=== PATIENT | female | born 1940 | race Caucasian/White ===

== ENCOUNTER 2016-10-16 15:28 | Emergency (ER) | payer MEDICARE, BC ==
[~2016-10-16 15:28] MED LIST: ASPI-130 PO; ATEN1TAB73 PO; CALCTAB80 OR; LEVO100T4 PO; LORT5TAB PO; MEVA40TA6 PO; TAB-TAB PO
[2016-10-16 15:34] VITALS: BP 123/75; PULSE 82; TEMP 97.9; O2SAT 95
[2016-10-16] MEDS ORDERED: SODIUM CHLORIDE 0.9% FLUSH 10 ML FLUSH IVF PRN (17:00)
[2016-10-16 17:03] VITALS: BP 158/99; PULSE 72; RESP 18; O2SAT 99
--- NOTE | 2016-10-16 17:13 | PD ---
HPI Chief Complaint: Syncope/Near-Syncope Time Seen by Provider: 17:05 Travel History International Travel<30 days: No Contact w/Intl Traveler<30days: No Traveled to known affect area: No History of Present Illness HPI This is a 76-year-old female with history of hypertension, hyperlipidemia, who presents today after having a syncopal episode. Patient states that she was feeling nauseous and went to the bathroom to vomit. She states that when she started to dry heave, she became dizzy and passed out. She says next thing she remembers she is on the floor. She reports that she struck the wall when she passed out. She denies any head pain or neck pain although she does have 2 abrasions to her forehead. The patient states that she had an episode similar to this in the past and was told that it was because she had a hypotensive episode. The patient denies any chest pain, chest pressure. She denies any nausea at this time. The patient denies any abdominal pain. She states that she has not eaten in 24 hours though. She does report that she's had acute stressors in her was recently in the hospital. [facility] Social History Tobacco Use: No Allergies-Medications (Allergen,Severity, Reaction): Coded Allergies: No Known Allergies (Unverified , 10/16/16) Reported Meds & Prescriptions Reported Meds & Active Scripts Active Reported Lisinopril 5 Mg Tab 5 Mg PO DAILY Lovastatin 40 Mg Tab 40 Mg PO DAILY Synthroid (Levothyroxine Sodium) 50 Mcg Tab 50 Mcg PO DAILY Calcium 1000 + D (Calcium Carbonate-Cholecalciferol) 1,000-800 Mg-Unit Tab 1 Tab PO Review of Systems Except as stated in HPI: all other systems reviewed are Neg General / Constitutional: No: Fever, Chills HENT: No: Headaches, Vertigo, Lightheadedness Cardiovascular: No: Chest Pain or Discomfort, Palpitations Respiratory: No: Cough, Shortness of Breath Gastrointestinal: Positive: Nausea, Vomiting, No: Abdominal Pain Musculoskeletal: Positive: Weakness (generalized weakness), No: Pain Neurologic: Positive: Weakness (generalized weakness), Syncope, No: Dizziness , Headache, Change in Mentation Physical Exam Narrative GENERAL: Well-developed well-nourished female in no acute respiratory distress. SKIN: Focused skin assessment warm/dry. HEAD: Normocephalic. The patient has 2 abrasions one to the right forehead and then one to the right lateral temporal area. There is no bony deformity or step -offs noted. EYES: Extraocular muscles were intact. No scleral icterus. No injection or drainage. ENT: No nasal bleeding or discharge. Mucous membranes pink and moist. NECK: Trachea midline. Supple. No posterior spinous process tenderness. Full range of motion CARDIOVASCULAR: Regular rate in the 80s with normal sinus rhythm. There is a 2/ 6 systolic murmur heard at the left sternal border. The patient reports that she has a history of murmurs. RESPIRATORY: No accessory muscle use. Clear to auscultation. Breath sounds equal bilaterally. GASTROINTESTINAL: Abdomen soft, non-tender, nondistended. No pulsatile masses. MUSCULOSKELETAL: No obvious deformities. No clubbing. No cyanosis. No edema. NEUROLOGICAL: Awake and alert. No obvious cranial nerve deficits. Motor grossly within normal limits. Normal speech. PSYCHIATRIC: Appropriate mood and affect; insight and judgment normal. Data Data Last Documented VS Vital Signs Date Time Temp Pulse Resp B/P Pulse Ox O2 Delivery O2 Flow Rate FiO2 10/16/16 17:27 73 17 137/65 74 16 145/64 84 20 165/65 10/16/16 17:03 98 Room Air 10/16/16 15:34 97.9 Orders Electrocardiogram (10/16/16 16:52) Complete Blood Count With Diff (10/16/16 16:52) Comprehensive Metabolic Panel (10/16/16 16:52) Magnesium (Mg) (10/16/16 16:52) Ckmb (Isoenzyme) Profile (10/16/16 16:52) Troponin I (10/16/16 16:52) Act Partial Throm Time (Ptt) (10/16/16 16:52) Prothrombin Time / Inr (Pt) (10/16/16 16:52) Urinalysis - C+S If Indicated (10/16/16 16:52) Chest, Single Ap (10/16/16 16:52) Ct Brain W/O Iv Contrast(Rout) (10/16/16 16:52) Ecg Monitoring (10/16/16 16:52) Iv Access Insert/Monitor (10/16/16 16:52) Oximetry (10/16/16 16:52) Sodium Chloride 0.9% Flush (Ns Flush) (10/16/16 17:00) Orthostatic Vital Signs (10/16/16 17:05) Sodium Chlorid 0.9% 500 Ml Inj (Ns 500 M (10/16/16 17:15) Labs Laboratory Tests Test 10/16/16 10/16/16 17:10 18:30 White Blood Count 4.8 TH/MM3 Red Blood Count 4.56 MIL/MM3 Hemoglobin 13.2 GM/DL Hematocrit 37.9 % Mean Corpuscular Volume 83.2 FL Mean Corpuscular Hemoglobin 29.1 PG Mean Corpuscular Hemoglobin 34.9 % Concent Red Cell Distribution Width 13.2 % Platelet Count 208 TH/MM3 Mean Platelet Volume 7.9 FL Neutrophils (%) (Auto) 74.0 % Lymphocytes (%) (Auto) 14.1 % Monocytes (%) (Auto) 11.6 % Eosinophils (%) (Auto) 0.0 % Basophils (%) (Auto) 0.3 % Neutrophils # (Auto) 3.5 TH/MM3 Lymphocytes # (Auto) 0.7 TH/MM3 Monocytes # (Auto) 0.6 TH/MM3 Eosinophils # (Auto) 0.0 TH/MM3 Basophils # (Auto) 0.0 TH/MM3 CBC Comment DIFF FINAL Differential Comment Prothrombin Time 11.0 SEC Prothromb Time International 1.0 RATIO Ratio Activated Partial 28.8 SEC Thromboplast Time Sodium Level 128 MEQ/L Potassium Level 3.8 MEQ/L Chloride Level 93 MEQ/L Carbon Dioxide Level 23.8 MEQ/L Anion Gap 11 MEQ/L Blood Urea Nitrogen 13 MG/DL Creatinine 0.70 MG/DL Estimat Glomerular Filtration 81 ML/MIN Rate Random Glucose 96 MG/DL Calcium Level 9.0 MG/DL Magnesium Level 1.9 MG/DL Total Bilirubin 0.4 MG/DL Aspartate Amino Transf 19 U/L (AST/SGOT) Alanine Aminotransferase 27 U/L (ALT/SGPT) Alkaline Phosphatase 56 U/L Total Creatine Kinase 94 U/L Troponin I LESS THAN 0.02 NG/ML Total Protein 7.4 GM/DL Albumin 3.7 GM/DL Urine Color LIGHT-YELLOW Urine Turbidity CLEAR Urine pH 6.5 Urine Specific [place] 1.008 Urine Protein TRACE mg/dL Urine Glucose (UA) NEG mg/dL Urine Ketones 40 mg/dL Urine Occult Blood SMALL Urine Nitrite NEG Urine Bilirubin NEG Urine Urobilinogen LESS THAN 2.0 MG/DL Urine Leukocyte Esterase NEG Urine RBC 1 /hpf Urine WBC 1 /hpf Microscopic Urinalysis Comment CULT NOT INDICATED MDM Medical Decision Making Medical Screen Exam Complete: Yes Emergency Medical Condition: Yes Differential Diagnosis Vasovagal syncope versus cardiac syncope versus TIA Narrative Course 76-year-old female who had a syncopal episode. The patient was feeling nauseous and with the vomit and passed out striking her head. The patient has no acute intracranial denies found on CT scan. Lab tests including urinalysis showed ketones in urine but otherwise negative. The patient was given a 500 cc bolus of fluid. I discussed that she needs to drink plenty of fluids. We discussed that this is likely a vasovagal episode stemming from the vomiting reflex. He is instructed to drink plenty of water. She does drink. L but I told her that she should also drink water. She is instructed to return if she does any worsening symptoms. The patient is awake alert and a symptomatic and had been observed with no ectopy on monitor. Diagnosis Primary Impression: syncope, suspect vasovagal episode. Additional Impressions: Mild dehydration hypertension by history History of hypertension History of hyperlipidemia Additional Instructions: Drink plenty of fluids. No heavy exertional activity 5 days. I'll up with primary care physician. Disposition: 01 DISCHARGE HOME Condition: Stable Robin Mcmillan MD Oct 16, 2016 17:13
[2016-10-16] MEDS ORDERED: SODIUM CHLORID 0.9% 500 ML INJ 500 ML IV ONE (17:15)
[2016-10-16] MEDS ORDERED: CALCTAB80 PO (17:23)
[2016-10-16] MEDS ORDERED: LEVO.05 PO (17:24)
[2016-10-16] MEDS ORDERED: LOVA40TA PO (17:25)
[2016-10-16] MEDS ORDERED: LISI-519 PO (17:26)
[2016-10-16 17:27] VITALS: BP_SYST 137; BP_SYST 145; BP_SYST 165; BP_DIAS 64; BP_DIAS 65; RESP 16; RESP 17; RESP 20
[2016-10-16 17:53] LABS: AUTOMATED NEUTROPHIL # 3.5 TH/MM3 (1.8-7.7); BASOPHIL % 0.3 % (0.0-2.0); HEMATOCRIT 37.9 % (35.0-46.0); HEMO FLAGS DIFF FINAL; LYMPH % 14.1 % (9.0-44.0); LYMPHOCYTE # 0.7 TH/MM3 (1.0-4.8); MEAN CELL VOLUME 83.2 FL (80.0-100.0); MEAN CORPUSCULAR HEMOGLOBIN 29.1 PG (27.0-34.0); MEAN CORPUSCULAR HGB CONC 34.9 % (32.0-36.0); MONO % 11.6 % (0.0-8.0); PLATELET COUNT 208 TH/MM3 (150-450); RED BLOOD COUNT 4.56 MIL/MM3 (4.00-5.30); RED CELL DISTRIBUTION WIDTH 13.2 % (11.6-17.2); WHITE BLOOD COUNT 4.8 TH/MM3 (4.0-11.0)
[2016-10-16 17:58] LABS: APTT (PATIENT) 28.8 SEC (24.3-30.1)
--- NOTE | 2016-10-16 17:58 | RADRPT ---
EXAM DATE/TIME: 10/16/2016 17:37 [facility] COMPARISON: No previous studies available for comparison. INDICATIONS : Syncopal episode / fall after vomiting. Patient hit her head. RADIATION DOSE: 39.98 CTDIvol (mGy) MEDICAL HISTORY : None SURGICAL HISTORY : None. ENCOUNTER: Initial ACUITY: 1 day PAIN SCALE: 7/10 LOCATION: cranial TECHNIQUE: Multiple contiguous axial images were obtained of the head. Using automated exposure control and adj ustment of the mA and/or kV according to patient size, radiation dose was kept as low as reasonably a chievable to obtain optimal diagnostic quality images. FINDINGS: CEREBRUM: The ventricles are normal for age. No evidence of midline shift, mass lesion, hemorrhage or acute in farction. No extra-axial fluid collections are seen. POSTERIOR FOSSA: The cerebellum and brainstem are intact. The 4th ventricle is midline. The cerebellopontine angle i s unremarkable. EXTRACRANIAL: The visualized portion of the orbits is intact. SKULL: The calvaria is intact. No evidence of skull fracture. CONCLUSION: Normal examination for a patient of this age. Jaquan Arana MD on October 16, 2016 at 17:55 Board Certified Radiologist. This report was verified electronically.
[2016-10-16 18:12] LABS: ALT (GPT) 27 U/L (10-53); ANION GAP 11 MEQ/L (5-15); AST (GOT) 19 U/L (15-37); BICARBONATE 23.8 MEQ/L (21.0-32.0); BLOOD UREA NITROGEN 13 MG/DL (7-18); CHLORIDE 93 MEQ/L (98-107); GLOMERULAR FILTRATION RATE 81 ML/MIN (>89); MAGNESIUM 1.9 MG/DL (1.5-2.5); POTASSIUM 3.8 MEQ/L (3.5-5.1); SODIUM (NA) 128 MEQ/L (136-145)
[2016-10-16 18:15] LABS: ALKALINE PHOSPHATASE 56 U/L (45-117); TOTAL BILIRUBIN ADULT 0.4 MG/DL (0.2-1.0)
--- NOTE | 2016-10-16 18:20 | RADRPT ---
EXAM DATE/TIME: 10/16/2016 17:32 [facility] COMPARISON: No previous studies available for comparison. INDICATIONS : Syncopal episode. MEDICAL HISTORY : None. SURGICAL HISTORY : None. ENCOUNTER: Initial ACUITY: 1 day PAIN SCORE: 0/10 LOCATION: Bilateral chest FINDINGS: A single view of the chest demonstrates the lungs to be symmetrically aerated without evidence of mas s, infiltrate or effusion. Minimal basilar atelectasis. The cardiomediastinal contours are unremarkab le. Osseous structures are intact. CONCLUSION: 1. Minimal basilar atelectasis. Jaquan Arana MD on October 16, 2016 at 18:18 Board Certified Radiologist. This report was verified electronically.
[2016-10-16 18:32] LABS: CREATINE KINASE 94 U/L (26-192)
[2016-10-16 18:57] LABS: BLOOD, URINE SMALL (NEG); COMMENT (UR) CULT NOT INDICATED; CULTURE IF INDICATED CULT NOT INDICATED; GLUCOSE,URINE NEG (NEG); KETONE, URINE 40 mg/dL (NEG); NITRITE,URINE NEG (NEG); PH, URINE 6.5 (5.0-8.5); URINE COLOR LIGHT-YELLOW (YELLW/STRAW)
[2016-10-16 19:34] VITALS: BP 144/70
== END 2016-10-16 19:48 | disposition home or self-care (01) ==
LOC: NEPE 15:28
DX: R55 Syncope and collapse (principal); E86.0 Dehydration; I10 Essential (primary) hypertension; E78.5 Hyperlipidemia, unspecified; S00.81XA Abrasion of other part of head, initial encounter; W18.39XA Other fall on same level, initial encounter
CPT/HCPCS: 70450; 71010; 80053; 81001; 82550; 83735; 84484; 85025; 85610; 85730; 96360; 99284; J7040